=== PATIENT | female | born 1970 | race Caucasian/White ===

== ENCOUNTER 2024-09-15 11:39 | Outpatient (CLI) | payer OTHER, SELFPAY ==
[2024-09-15 11:50] LABS: Basophils Absolute Auto 0.04 K/mm3 (0.00-0.10); Basophils Percent Auto 0.6 % (0.0-1.0); Eosinophils Absolute Auto 0.15 K/mm3 (0.02-0.50); Eosinophils Percent Auto 2.3 % (1.0-6.0); Hematocrit 43.2 % (35.0-49.0); Hemoglobin 13.8 g/dL (12.0-15.0); Immature Granulocyte Absolute 0.02 K/mm3 (0.00-0.00); Immature Granulocyte Percent A 0.3 % (0.0-0.0); Lymphocytes Absolute Auto 2.21 K/mm3 (1.10-4.50); Lymphocytes Percent Auto 33.8 % (18.0-42.0); Mean Corpuscular HGB Conc 31.9 g/dL (32-36); Mean Corpuscular Hemoglobin 27.9 pg (27.0-31.0); Mean Corpuscular Volume 87.4 fL (78.0-102.0); Mean Platelet Volume 10.3 fl (9.2-11.8); Monocytes Absolute Auto 0.37 K/mm3 (0.10-0.90); Monocytes Percent Auto 5.7 % (2.0-11.0); Neutrophils Absolute Auto 3.75 K/mm3 (1.70-7.20); Neutrophils Percent Auto 57.3 % (50.0-70.0); Platelet Count Result 229 K/mm3 (150-420); Red Blood Count 4.94 M/mm3 (4.20-5.40); Red Cell Distribution Width 12.9 % (11.6-14.4); White Blood Count 6.5 K/mm3 (4.8-10.8)
[2024-09-15 12:41] LABS: Alanine Aminotransferase 22 U/L (14-59); Albumin Level 3.9 g/dL (3.4-5.0); Alkaline Phosphatase 99 U/L (46-116); Anion Gap 5 mmol/L (4-12); Aspartate Amino Transferase 15 U/L (15-37); Bilirubin,Total 0.5 mg/dL (0.00-1.00); Blood Urea Nitrogen 11 mg/dL (7-18); Calcium 9.5 mg/dL (8.5-10.1); Carbon Dioxide 31 mmol/L (21-32); Chloride 101 mmol/L (98-108); Cholesterol 291 mg/dL (0-200); Estimated Glomerular Filt Rate 55; Glucose 84 mg/dL (70-99); HDL Direct 44 mg/dL (40-60); LDL Cholesterol Calculated 193 mg/dL (<130); Osmolality Calculated 282 mOsm/kg (285-295); Potassium 4.9 mmol/L (3.5-5.1); Sodium 137 mmol/L (136-145); Total Protein 7.8 g/dL (6.4-8.2); Triglycerides 269 mg/dL (0-150)
[2024-09-15 12:57] LABS: Thyroid Stimulating Hormone Reflex 2.04 u/IU/mL (0.36-3.74)
== END 2024-09-15 11:40 | disposition home or self-care (01) ==
PROVIDERS: PCP Family Medicine; Visit Provider Family Medicine
DX: G24.01 Drug induced subacute dyskinesia (principal); E03.9 Hypothyroidism, unspecified
CPT/HCPCS: 36415; 80053; 80061; 84443; 85025

== ENCOUNTER 2024-10-21 07:19 | Outpatient (CLI) | payer OTHER, SELFPAY ==
--- NOTE | ~2024-10-21 | MR_ITS ---
MRI of the brain Clinical History: Drug induced subacute dyskinesia Technique: Axial and sagittal T1-weighted images were acquired. These were followed by axial T2-weigh rowena, diffusion weighted, gradient, and FLAIR images. Findings: No significant abnormality seen in the brain parenchyma. No acute infarct, internal hemorrh age, or mass lesion. Ventricles and subarachnoid spaces are unremarkable. Orbits are unremarkable. Paranasal sinuses and m astoid air cells are clear. Major intracranial flow voids are intact. Sagittal midline structures are intact. IMPRESSION: Normal exam. Reviewed, dictated and finalized at location M. IMPRESSION: Normal exam.
--- OUTSIDE RECORDS SUMMARY | 2024-10-21 07:24 | XMS_ITS | Continuity of Care Document ---
Author Organization [facility] Address [address] [place] [address] Phone Care Team Providers Care Parts Room Assistant Name Role Phone [facility], Nurses Unavailable Unavailable Allergies, Adverse Reactions, Alerts Substance Reaction Status Criticality No Known Drug Allergies Active No I nformation Procedures Procedure Date OFFICE/OUTPATIENT VISIT, EST NURSE VISIT NURSE VISIT NURSE VISIT NURSE VISIT OFFICE/OUTPATIENT VISIT, EST ROUTINE VENIPUNCTURE CBC, Platelet, No Differential CMP14+LP+Hb A1c+eAG Hepatitis Panel (4) Panel [id number] RPR, Rfx Qn RPR/Confirm TP TSH Pap Lb, Ct-Ng, HPV-hr Vaginitis/Vaginosis, DNA Probe [facility] Chart Review OFFICE/OUTPATIENT VISIT, NEW Advance Directives Directive Yes / No Effective Date File Name No Information Encounters Encounter Description Practice Location Reason(s) For Visit Diagnoses Date Provider Providers Copied on Encounter [facility], [address] [place], [id number], [place] tel:[phone] [facility] Katy Catalan No Information 5 [facility]. [address] [place], [address], [place]. tel: [phone] [facility], [address] [place] [address], [place], [place], [id number], [place] tel: [facility] Katy Catalan Schizoaffect bill disorder, bipolar typePosttrau matic stress disorderGene ralized anxiety disorder with panic attacks 9 [facility] [employer]. [address] [place] [address], [address], [place]. tel: [phone] OFFICE/OUTPA TIENT VISIT, EST [facility], [address] [place] [address], [id number], [place] tel: [facility] Follow Up of Depression (chief complaint)Fol low Up of Schizophrenia (chief complaint) Body mass index (BMI) 32.0-32.9, adultSchizoa ffective disorder, bipolar typePosttrau matic stress disorderGene ralized anxiety disorder with panic attacks 9 No Information [facility], [address] [place] [address], [place], [place], [id number], [place] tel: [facility] Katy Catalan T spot (chief complaint) Encounter for screening for respiratory tuberculosis 9 [facility] Nurses. [address] [place] [address], [address], [place]. tel: [phone] Consulting Provider: [facility] Nurse. OFFICE/OUTPA TIENT VISIT, EST [facility], [address] [place] [address], [place], [place], [id number], [place] tel: [facility] Katy Catalan TB (chief complaint)cer vical cancer screening (chief complaint) Encounter for screening, unspecifiedB hanny mass index (BMI) 32.0-32.9, adultEncount er for screening for respiratory tuberculosis SmokerCervic al cancer screeningEle vated blood pressure reading without diagnosis of hypertension Breast cancer screening 9 Cantu Tara. [address] [place] [address], [address], [place]. tel: [phone] [facility], [address] [place] [address], [place], [place], [id number], [place] tel: [facility] No Information Nov-0 4-201 9 [facility]es. [address], [place], [address], [place]. tel: [phone] Consulting Provider: Reyna England LVN. OFFICE/OUTPA TIENT VISIT, NEW [facility], [address], [place], [place], [id number], [place] tel: [phone] [facility] Thyroid problems (chief complaint)Anx iety (chief complaint) Encounter for screening for respiratory tuberculosis Body mass index (BMI) 32.0-32.9, adultGeneral ized anxiety disorder with panic attacksPostt raumatic stress disorderSchi zoaffective disorder, bipolar type No Information Family History Family Member Type Diagnosis Age At Onset Father Problem (finding) Heart problems Father Problem (finding) Alive and well Mother Problem (finding) Mental issues Mother Problem (finding) Alive and well Mother Problem (finding) Hypertension Mother Problem (finding) Thyroid disorder Problem (finding) Family history of blind ness Immunizations Vaccine Date Status Comments Flu Inj. Quad 0.5ml Multidos e Vial refused Source: New Immuniza tion Record Payers Payer name Insurance type Covered green party ID Authoriza tion(s) SELF PAY Category E 09 [id number] SELF PAY Category E 09 [id number] Social History Type Description Quantity Date Captured Comments Sex Female Smoking Status No Information Chief Complaint And Reason For Visit No Information Plan Of Treatment Date Type Action Status Goal FOBT (3 Cards Given). Due on due Goal Occult Blood, Fe ge[place]anny, [place] (FIT). Due on due Goal Td vaccine. Due on 19 due Goal Depression screening. Due on due Goal Tdap. Due on due Goal Colonoscopy. Due on due Goal MMR Vaccine. Due on due Goal Mammogram. Due on 9 due Goal Cologuard. Due on 9 due Goal Flu Vaccine. Due on due Goal Mammogram. Due on 9 due Goal MMR Vaccine. Due on due Goal Colonoscopy. Due on due Goal Occult Blood, Fe geovanny, [place] (FIT). Due on due Goal Depression screening. Due on due Goal Td vaccine. Due on due Goal Tdap. Due on due Goal FOBT (3 Cards Given). Due on due Goal Dietary manageme nt education, guidance, and counseling completed Goal Tobacco cessation counseling completed Goal Occult Blood, Fe geovanny, [place] (FIT). Due on due Goal Depression screening. Due on due Goal MMR Vaccine. Due on due Goal Colonoscopy. Due on due Goal Flu Vaccine. Due on due Goal Td vaccine. Due on due Goal FOBT (3 Cards Given). Due on due Goal Tdap. Due on due Goal Cologuard. Due on 9 due Goal Mammogram. Due on due Goal Flu Vaccine. Due on due Goal Depression screening. Due on due Goal Occult Blood, Fe geovanny, [place] (FIT). Due on due Goal MMR Vaccine. Due on due Goal Td vaccine. Due on due Goal Mammogram. Due on 9 due Goal FOBT (3 Cards Given). Due on due Goal Tdap. Due on due Goal Colonoscopy. Due on due Goal Cologuard. Due on 9 due Goal Lifestyle education regardin g diet completed Goal Tobacco cessation counseling completed Goal Cervical Cancer Screening. D ue on due Goal Cologuard. Due on 9 due Goal FOBT (3 Cards Given). Due on due Goal Tdap. Due on due Goal Colonoscopy. Due on due Goal Mammogram. Due on 9 due Goal Occult Blood, Fe geovanny, [place] (FIT). Due on due Goal MMR Vaccine. Due on due Goal Flu Vaccine. Due on due Goal Td vaccine. Due on 19 due Goal Depression screening. Due on due Goal Cervical Cancer Screening. D ue on due Goal Flu Vaccine. Due on due Goal Occult Blood, Fe geovanny, [place] (FIT). Due on due Goal Cologuard. Due on 9 due Goal FOBT (3 Cards Given). Due on due Goal Mammogram. Due on due Goal Tdap. Due on due Goal Colonoscopy. Due on due Goal MMR Vaccine. Due on due Goal Depression screening. Due on due Goal Td vaccine. Due on 19 due Goal Dietary manageme nt education, guidance, and counseling completed Goal Tobacco cessation counseling completed Referral Ordered: Referrals: Psychiatry. Evaluate and treat Appointment date/timeframe: 3 Days ordered Referral Referred To: Adolph Ogden MD [address] [place], [phone] Ordered: Referrals: Psychiatry. Adolph Ogden MD. Evaluate and treat Appointment date/timeframe: 3 Days ordered Referral Ordered: Referrals: [facility] Appointment date/timeframe: 05/18/2019 ordered Patient Education A Healthy Lifestyle: Ca re Instructions completed Patient Education A Healthy Lifestyle: Ca re Instructions completed History Of Present Illness Encounter Date Complaint History Of Prese nt Illness Follow Up of Depression This is a follow up visit. The date of the initial visit for this episode was 04/16/2019. The patient presents with anxious/fearful thoughts, depressed mood, excessive worry and feelings of guilt but denies fatigue, poor judgment or thoughts of or suicide. The patient's risk factors include history of depression, medication ([place]) and social isolation. The Follow Up of Depression is aggravated by traumatic memories but not with alcohol use or drug use. The patient's relieving factors are medication. The patient denies any vomiting. Follow Up of Schizophrenia Prese nts for medication refill, wishes to have labs done for [place] levels. T spot Patient came in for T spot results, negative results. Documentation given to patient. [facility]ahan TB no headache or c hest pain or sob, no upper or lower extremity swelling, No cough or night sweats, no known exposure to tuberculosis, no unexplained weight loss, no physical compromise, currently on mental health meds, pending access to Psychiatry cervical cancer screening no abd ominal or pelvic pain, no vaginal discharge, Ab5, most recent delivery in 2001, LNMP 04/16/19 Thyroid problems This has been a problem for 7 Years. Presenting symptoms include fatigue, insomnia, rapid heart beat and weight gain. Presenting symptoms do not include irregular menses. Risk factors include age, family history of thyroid disease, female and history of hypothyroidism. Anxiety The first episod e occurred in 2010. The patient presents with anxious/fearful thoughts, difficulty concentrating, difficulty falling asleep, difficulty staying asleep, excessive worry, fatigue and restlessness but denies depressed mood, diminished interest or pleasure, loss of appetite or thoughts of or suicide. The patient's risk factors include family history of depression, family history of anxiety, family history of bipolar disorder and history of depression. The Anxiety is aggravated by ex-boyfriend. The Anxiety is associated with headache and nausea. The patient denies any chronic pain, sweating, trembling, urinary frequency and vomiting. Additional information: would like to discuss being put back on medication. Instructions Date Instruction Additional Infor mation Giving encouragement to exercise Related to Body mass index (BMI) 32.0-32.9, adult Dietary management e ducation, guidance, and counseling Related to Body mass index (BMI) 32.0-32.9, adult Clinical breast exam within normal limits, Mammogram referral sent to [facility] Related to Breast cancer screening Encourage no added s alt in diet , Goal is Blood pressure less than 140 / 90 , Recheck blood pressure on return to clinic Related to Elevated blood pressure reading without diagnosis of hypertension Pelvic exam within n ormal limits, Pap smear done today Related to Cervical cancer screening Encourage decrease p ortions and increase in activity, Goal is BMI less than 25L[facility] for [facility] cancer screeningFollowup in 1 week or sooner if needed Related to Body mass index (BMI) 32.0-32.9, adult Tspot today - result s available within 1 week Related to Encounter for screening for respiratory tuberculosis Lifestyle education regarding di et Related to Adult BMI of 32.0-32.9 Giving encouragement to exercise Related to Adult BMI of 32.0-32.9 Dietary management e ducation, guidance, and counseling Related to Body mass index (BMI) 32.0-32.9, adult Assessments Type Assessment Date No Information
--- OUTSIDE RECORDS SUMMARY | 2024-10-21 07:24 | XMS_ITS | Continuity of Care Document ---
Author Organization [facility] Address [address] [place] [address] Phone Care Team Providers Care Special Library Librarian Name Role Phone Unavailable Unavailable Unavailable Advance Directives Directive Yes / No Effective Date File Name No Information Encounters Encounter Description Practice Location Reason(s) For Visit Diagnoses Date Provider Providers Copied on Encounter [facility] [address], [place], [place], [id number], [place] tel:[phone] [facility] No Information No Information Family History Family Member Type Diagnosis Age At Onset No Information Payers Payer name Insurance type Covered libertarian ID Authoriza tion(s) No Information Social History Type Description Quantity Date Captured Comments Sex Female Smoking Status No Information Chief Complaint And Reason For Visit No Information Reason For Referral Reason For Referral No Information History Of Present Illness Encounter Date Complaint History Of Prese nt Illness No Information Functional Status Date Functional Assessmen t No Information Instructions Date Instruction Additional Infor mation No Information Assessments Type Assessment Date No Information Patient Care Teams Name Effective Dates (start - stop) Status Members No Information
== END 2024-10-21 07:20 | disposition home or self-care (01) ==
LOC: CHSIMG 07:20
PROVIDERS: PCP Family Medicine; Visit Provider Family Medicine
DX: G24.01 Drug induced subacute dyskinesia (principal)
CPT/HCPCS: 70551

== ENCOUNTER 2024-10-22 11:36 | Outpatient (CLI) | payer OTHER, SELFPAY ==
--- NOTE | ~2024-10-22 | MM_ITS ---
EXAMINATION: MM screening ernie BI w tong HISTORY: Screening TECHNIQUE: Craniocaudal and mediolateral oblique 3-D tomosynthesis images were obtained and synthetic 2-D images were generated. CAD analysis was submitted and interpreted. COMPARISON: No prior mammogram is available for comparison at this institution. BREAST PARENCHYMAL COMPOSITION: Not dense: There are scattered areas of fibroglandular density. FINDINGS: There are asymmetries in the upper outer quadrant of the right breast, upper outer quadrant of the left breast and medially in the left breast on CC view. There are no suspicious calcification s or architectural distortion. IMPRESSION: 1. Bilateral breast asymmetries. 2. Recommend comparison to previous outside mammograms if available. If prior mammograms are not avai lable, correlation with additional spot compression views and possible additional ultrasound recommen ded. BI-RADS CATEGORY 0 - INCOMPLETE STUDY, NEED ADDITIONAL IMAGING EVALUATION. Reviewed, dictated and finalized at location A. IMPRESSION: 1. Bilateral breast asymmetries. 2. Recommend comparison to previous outside mammograms if available. If prior m ammograms are not available, correlation with additional spot compression views and possible additional ultrasound recommended. BI-RADS CATEGORY 0 - INCOMPLETE STUDY, NEED ADDITIONAL IMAGING EVALUATION.
--- OUTSIDE RECORDS SUMMARY | 2024-10-22 11:40 | XMS_ITS | Continuity of Care Document ---
Author Organization [facility] Address [address] [place] [address] Phone Care Team Providers Care Medieval English Literature Professor Name Role Phone [facility], Nurses Unavailable Unavailable Allergies, Adverse Reactions, Alerts Substance Reaction Status Criticality No Known Drug Allergies Active No I nformation Procedures Procedure Date OFFICE/OUTPATIENT VISIT, EST NURSE VISIT NURSE VISIT NURSE VISIT NURSE VISIT OFFICE/OUTPATIENT VISIT, EST ROUTINE VENIPUNCTURE CBC, Platelet, No Differential CMP14+LP+Hb A1c+eAG Hepatitis Panel (4) Panel [id number] RPR, Rfx Qn RPR/Confirm TP TSH Pap Lb, Ct-Ng, HPV-hr Vaginitis/Vaginosis, DNA Probe [facility] Chart Review OFFICE/OUTPATIENT VISIT, NEW Advance Directives Directive Yes / No Effective Date File Name No Information Encounters Encounter Description Practice Location Reason(s) For Visit Diagnoses Date Provider Providers Copied on Encounter [facility], [address], [place], [id number], [place] [phone] [facility] Katy Catalan No Information 5 [facility]. [address] [place], [address], [place]. tel: [phone] [facility], [address] [place] [address], [place], [place], [id number], [place] tel: [facility] Katy Catalan Schizoaffect bill disorder, bipolar typePosttrau matic stress disorderGene ralized anxiety disorder with panic attacks 9 [facility] Chocolate [employer]isher. [address] [place] [address], [address], [place]. tel: [phone] OFFICE/OUTPA TIENT VISIT, EST [facility], [address] [place] [address], [id number], [place] tel: [facility] Follow Up of Depression (chief complaint)Fol low Up of Schizophrenia (chief complaint) Body mass index (BMI) 32.0-32.9, adultSchizoa ffective disorder, bipolar typePosttrau matic stress disorderGene ralized anxiety disorder with panic attacks 9 No Information [facility], [address] [place] [address], [place], [place], [id number], [place] tel: [facility] Katy Catalan T spot (chief complaint) Encounter for screening for respiratory tuberculosis 9 [facility]. [address] [place] [address], [address], [place]. tel: [phone] Consulting Provider: [facility] Nurse. OFFICE/OUTPA TIENT VISIT, EST [facility], [address] [place] [address], [place], [place], [id number], [place] tel: [facility] Katy Catlaan TB (chief complaint)cer vical cancer screening (chief complaint) Encounter for screening, unspecifiedB hanny mass index (BMI) 32.0-32.9, adultEncount er for screening for respiratory tuberculosis SmokerCervic al cancer screeningEle vated blood pressure reading without diagnosis of hypertension Breast cancer screening 9 [facility] T[facility]. [address] [place] [address], [address], [place]. tel: [phone] [facility], [address] [place] [address], [place], [place], [id number], [place] tel: [facility] No Information Nov-0 4-201 9 [facility] Nurses. [address], [place], [address], [place]. tel: [phone] Consulting Provider: Reyna England LVN. OFFICE/OUTPA TIENT VISIT, NEW [facility], [address], [place], [place], [id number], [place] tel: [phone] [facility] Thyroid problems (chief complaint)Anx [...] Record Payers Payer name Insurance type Covered constitution party ID Authoriza tion(s) SELF PAY Category E 09 [id number] SELF PAY Category E 09 [id number] Social History Type Description Quantity Date Captured Comments Sex Female Smoking Status No Information Chief Complaint And Reason For Visit No Information Plan Of Treatment Date Type Action Status Goal Cologuard. Due on 9 due Goal Flu Vaccine. Due on due Goal FOBT (3 Cards Given). Due on due Goal Occult Blood, Fe geovanny, [place] (FIT). Due on due Goal Td vaccine. Due on 19 due Goal Depression screening. Due on due Goal Tdap. Due on due Goal Colonoscopy. Due on due Goal MMR Vaccine. Due on due Goal Mammogram. Due on 9 due Goal Mammogram. Due on due Goal MMR Vaccine. Due [...] Due on due Goal Cologuard. Due on due Goal Mammogram. Due on [...] Referral Referred To: Adolph Ogden MD [address] [place], [phone] Ordered: Referrals: Psychiatry. Adolph Ogden MD. Evaluate [...] risk factors include history of depression, medication ([place]) and social isolation. The Follow Up of Depression is aggravated by traumatic memories but not with alcohol use or drug use. The patient's relieving factors are medication. The patient denies any vomiting. Follow Up of Schizophrenia Prese nts for medication refill, wishes to have labs done for [place] levels. T spot Patient came in for [...] activity, Goal is BMI less than 25L[facility] for breast cancer screeningFollowup in 1 [...]
== END 2024-10-22 11:37 | disposition home or self-care (01) ==
PROVIDERS: PCP Family Medicine; Visit Provider Family Medicine
DX: Z12.31 Encounter for screening mammogram for malignant neoplasm of breast (principal); R92.8 Other abnormal and inconclusive findings on diagnostic imaging of breast
CPT/HCPCS: 77063; 77067